=== PATIENT | female | born 1950 | race Two or more races ===

== ENCOUNTER → 2018-08-27 | Outpatient (CLI) | payer SELFPAY ==
--- NOTE | 2018-08-27 13:33 | REP ---
LEFT KNEE, FIVE VIEWS: Five views of the left knee are performed. There is no acute fracture or dislocation. There is mild to moderate medial joint space narrowing and subchondral sclerosis and spurring. There is mild patellofemoral compartment narrowing with subchondral sclerosis and mild spurring. There is moderate joint effusion. IMPRESSION: Degenerative changes without acute fracture or dislocation. Moderate joint effusion. Electronically Signed by Zana Cardoso MD 08/28/2018 11:36 A
== END ==
LOC: M LRY 12:04
PROVIDERS: ATTEND Physician Assistant
DX: M25.662 Stiffness of left knee, not elsewhere classified (principal)